=== PATIENT | male | born 1975 | race American Indian/Alaskan Native ===

== ENCOUNTER 2017-09-15 14:13 | Emergency (ER) | payer BC ==
[2017-09-15 15:19] LABS: Bilirubin,Urine NEG (Negative); Blood,Urine NEG (Negative); Color,Urine Yellow (Yellow); Mucus,Urine FEW /HPF; Nitrite,Urine NEG (Negative); Protein,Urine <15 mg/dL mg/dL (Negative)
[2017-09-15 15:29] LABS: Hematocrit 40.4 % (35.5-45.6); Hemoglobin 13.4 gm/dl (11.8-15.2); Mean Corpuscular HGB Conc 33 % (32-34); Mean Corpuscular Hemoglobin 28 pg (28-32); Mean Corpuscular Volume 83 fl (84-94); Platelet Count 253 K/mm3 (140-440); Red Blood Count 4.87 M/mm3 (3.65-5.03); Red Cell Distribution Width 12.9 % (13.2-15.2)
[2017-09-15 15:54] LABS: Alanine Aminotransferase 33 units/L (7-56); BUN/Creatinine Ratio 27; Blood Urea Nitrogen 16 mg/dL (9-20); Calcium 9.2 mg/dL (8.4-10.2); Hemolysis Index 3
[2017-09-15 16:13] LABS: Basophils % (Manual) 0 % (0.0-1.8); Total Cells Counted 100
[2017-09-15 16:14] LABS: Anisocytosis 1+
[2017-09-15] MEDS ORDERED: ZOFRAN IV ONE (21:32)
[2017-09-15] MEDS ORDERED: PEPCID IV ONE (21:32)
[2017-09-15] MEDS ORDERED: NACL 0.9% 1000 ML 1,000 ML IV ONE (21:32)
--- NOTE | 2017-09-15 21:32 | Emergency Department Report ---
Vomiting/Diarrhea - HPI Chief Complaint: Nausea/Vomiting/Diarrhea Stated Complaint: THINK HAS DIABETES Time Seen by Provider: 09/15/17 21:11 Duration: patient states that he has had nausea vomiting diarrhea for approximately one week Severity: moderate Nausea/Vomiting Severity: Moderate Diarrhea Severity: Moderate Pain Location: Other (patient denies pain) Pain Severity: None Symptoms: Yes Watery Diarrhea, Yes Able to Tolerate Fluids (very little over the last week), No Bloody diarrhea, No Fever, No Recent Unusual Foods, No Recent Untreated Water, No Recent use of Antibiotics, No Family w/ Similar Symptoms, No Contacts w/ Similar Symptoms, No Rash, No Hematuria, No Recent URI Symptoms Other History: Patient also states that he has had 2 months of weight loss. Patient states he even went to the clinic 2 weeks ago to get HIV testing as he thought this may have been the cause of his weight loss. The patient denies any fevers chills. Patient denies pain. Patient looked on the Internet and looked up symptoms for diabetes and came in for diabetes testing ED Review of Systems ROS: Stated complaint: THINK HAS DIABETES Other details as noted in HPI Comment: All other systems reviewed and negative ED Past Medical Hx - Past Medical History Previous Medical History?: Yes Additional medical history: STD exposure - Surgical History Past Surgical History?: Yes Additional Surgical History: left arm with plates and screws - Social History Smoking Status: Current Every Day Smoker Substance Use Type: Marijuana - Medications Home Medications: Home Medications Medication Instructions Recorded Confirmed Last Taken Type Diphenoxylate/Atropine [Lomotil] 1 tab PO Q4H PRN #7 tablet 09/15/17 Unknown Rx Famotidine [Pepcid] 20 mg PO TID #20 tablet 09/15/17 Unknown Rx Ondansetron [Zofran Odt] 4 mg PO TID #10 tab.rapdis 09/15/17 Unknown Rx Vomiting Diarrhea Exam - Exam General: Vital signs noted. No distress. Alert and acting appropriately. HEENT: Yes Moist Mucous Membranes, No Pharyngeal Erythema, No Pharyngeal Exudates, No Rhinorrhea, No Conjuctival Injection, No Frontal Tenderness, No Maxillary Tenderness Neck: No Adenopathy, No Rigidity Lungs: Yes Clear Lung Sounds, Yes Good Air Exchange, No Wheezes, No Stridor, No Cough, No Nasal Flaring, No Retractions, No Use of Accessory Muscles Heart exam: Regular: Yes, Murmur: No, Tachycardia: No Abdomen: Tenderness: No, Peritoneal Signs: No, Distention: No, Hyperactive Bowel sounds: No Skin exam: Rash: No, Edema: No, Normal turgor: Yes Neurologic: Alert and oriented, no deficits. Musculoskeletal: Unremarkable. ED Course Vital Signs 09/15/17 14:35 Temperature 98 F Pulse Rate 96 H Respiratory 16 Rate Blood Pressure 138/81 O2 Sat by Pulse 99 Oximetry - Reevaluation(s) Reevaluation #1: 09/15/17 23:39 Patient's been given 1 L normal saline for hydration and is feeling better after nausea medicines as well patient will be discharged home at this time for follow-up with primary care ED Medical Decision Making - Lab Data Result diagrams: 09/15/17 15:10 09/15/17 15:10 Lab Results 09/15/17 09/15/17 09/15/17 Range/Units 14:26 15:00 15:10 WBC 4.1 L (4.5-11.0) K/mm3 RBC 4.87 (3.65-5.03) M/mm3 Hgb 13.4 (11.8-15.2) gm/dl Hct 40.4 (35.5-45.6) % MCV 83 L (84-94) fl MCH 28 (28-32) pg MCHC 33 (32-34) % RDW 12.9 L (13.2-15.2) % Plt Count 253 (140-440) K/mm3 Add Manual Diff Complete Total Counted 100 Seg Neutrophils % Technology Intern Seg Neuts % (Manual) 44.0 (40.0-70.0) % Band Neutrophils % 0 % Lymphocytes % (Manual) 42.0 H (13.4-35.0) % Reactive Lymphs % (Man) 0 % Monocytes % (Manual) 13.0 H (0.0-7.3) % Eosinophils % (Manual) 1.0 (0.0-4.3) % Basophils % (Manual) 0 (0.0-1.8) % Metamyelocytes % 0 % Myelocytes % 0 % Promyelocytes % 0 % Blast Cells % 0 % Nucleated RBC % Not Reportable Seg Neutrophils # Man 1.8 (1.8-7.7) K/mm3 Band Neutrophils # 0.0 K/mm3 Lymphocytes # (Manual) 1.7 (1.2-5.4) K/mm3 Abs React Lymphs (Man) 0.0 K/mm3 Monocytes # (Manual) 0.5 (0.0-0.8) K/mm3 Eosinophils # (Manual) 0.0 (0.0-0.4) K/mm3 Basophils # (Manual) 0.0 (0.0-0.1) K/mm3 Metamyelocytes # 0.0 K/mm3 Myelocytes # 0.0 K/mm3 Promyelocytes # 0.0 K/mm3 Blast Cells # 0.0 K/mm3 WBC Morphology Not Reportable Hypersegmented Neuts Not Reportable Hyposegmented Neuts Not Reportable Hypogranular Neuts Not Reportable Smudge Cells Not Reportable Toxic Granulation Not Reportable Toxic Vacuolation Not Reportable Dohle Bodies Not Reportable Pelger-Huet Anomaly Not Reportable May Rods Not Reportable Platelet Estimate Appears normal Clumped Platelets Not Reportable Plt Clumps, EDTA Not Reportable Large Platelets Not Reportable Giant Platelets Not Reportable Platelet Satelliting Not Reportable Plt Morphology Comment Not Reportable RBC Morphology Not Reportable Dimorphic RBCs Not Reportable Polychromasia Not Reportable Hypochromasia Not Reportable Poikilocytosis Not Reportable Anisocytosis 1+ Microcytosis Not Reportable Macrocytosis Not Reportable Spherocytes Not Reportable Pappenheimer Bodies Not Reportable Sickle Cells Not Reportable Target Cells Not Reportable Tear Drop Cells Not Reportable Ovalocytes Not Reportable Helmet Cells Not Reportable Cardoso-[place] Bodies Not Reportable [place] Rings Not Reportable Noe Cells Not Reportable Bite Cells Not Reportable Crenated Cell Not Reportable Elliptocytes Not Reportable Acanthocytes (Spur) Not Reportable Rouleaux Not Reportable Hemoglobin C Crystals Not Reportable Schistocytes Not Reportable Malaria parasites Not Reportable Carl Bodies Not Reportable Hem Pathologist Commnt No Sodium (137-145) mmol/L Potassium (3.6-5.0) mmol/L Chloride (98-107) mmol/L Carbon Dioxide (22-30) mmol/L Anion Gap mmol/L BUN (9-20) mg/dL Creatinine (0.8-1.5) mg/dL Estimated GFR ml/min BUN/Creatinine Ratio % Glucose (75-100) mg/dL POC Glucose 98 (70-105) Calcium (8.4-10.2) mg/dL Total Bilirubin (0.1-1.2) mg/dL AST (5-40) units/L ALT (7-56) units/L Alkaline Phosphatase (35-129) units/L Total Protein (6.3-8.2) g/dL Albumin (3.9-5) g/dL Albumin/Globulin Ratio % Urine Color Yellow (Yellow) Urine Turbidity Clear (Clear) Urine pH 6.0 (5.0-7.0) Ur Specific [place] 1.023 (1.003-1.030) Urine Protein <15 mg/dl (Negative) mg/dL Urine Glucose (UA) Neg (Negative) mg/dL Urine Ketones Neg (Negative) mg/dL Urine Blood Neg (Negative) Urine Nitrite Neg (Negative) Urine Bilirubin Neg (Negative) Urine Urobilinogen 4.0 (<2.0) mg/dL Ur Leukocyte Esterase Tr (Negative) Urine WBC (Auto) 5.0 (0.0-6.0) /HPF Urine RBC (Auto) 5.0 (0.0-6.0) /HPF Urine Mucus Few /HPF 09/15/17 Range/Units 15:10 WBC (4.5-11.0) K/mm3 RBC (3.65-5.03) M/mm3 Hgb (11.8-15.2) gm/dl Hct (35.5-45.6) % MCV (84-94) fl MCH (28-32) pg MCHC (32-34) % RDW (13.2-15.2) % Plt Count (140-440) K/mm3 Add Manual Diff Total Counted Seg Neutrophils % Seg Neuts % (Manual) (40.0-70.0) % Band Neutrophils % % Lymphocytes % (Manual) (13.4-35.0) % Reactive Lymphs % (Man) % Monocytes % (Manual) (0.0-7.3) % Eosinophils % (Manual) (0.0-4.3) % Basophils % (Manual) (0.0-1.8) % Metamyelocytes % % Myelocytes % % Promyelocytes % % Blast Cells % % Nucleated RBC % Seg Neutrophils # Man (1.8-7.7) K/mm3 Band Neutrophils # K/mm3 Lymphocytes # (Manual) (1.2-5.4) K/mm3 Abs React Lymphs (Man) K/mm3 Monocytes # (Manual) (0.0-0.8) K/mm3 Eosinophils # (Manual) (0.0-0.4) K/mm3 Basophils # (Manual) (0.0-0.1) K/mm3 Metamyelocytes # K/mm3 Myelocytes # K/mm3 Promyelocytes # K/mm3 Blast Cells # K/mm3 WBC Morphology Hypersegmented Neuts Hyposegmented Neuts Hypogranular Neuts Smudge Cells Toxic Granulation Toxic Vacuolation Dohle Bodies Pelger-Huet Anomaly May Rods Platelet Estimate Clumped Platelets Plt Clumps, EDTA Large Platelets Giant Platelets Platelet Satelliting Plt Morphology Comment RBC Morphology Dimorphic RBCs Polychromasia Hypochromasia Poikilocytosis Anisocytosis Microcytosis Macrocytosis Spherocytes Pappenheimer Bodies Sickle Cells Target Cells Tear Drop Cells Ovalocytes Helmet Cells Cardoso-[place] Bodies [place] Rings [place] Cells Bite Cells Crenated Cell Elliptocytes Acanthocytes (Spur) Rouleaux Hemoglobin C Crystals Schistocytes Malaria parasites Carl Bodies Hem Pathologist Commnt Sodium 141 (137-145) mmol/L Potassium 4.0 (3.6-5.0) mmol/L Chloride 102.1 (98-107) mmol/L Carbon Dioxide 27 (22-30) mmol/L Anion Gap 16 mmol/L BUN 16 (9-20) mg/dL Creatinine 0.6 L (0.8-1.5) mg/dL Estimated GFR > 60 ml/min BUN/Creatinine Ratio 27 % Glucose 113 H (75-100) mg/dL POC Glucose (70-105) Calcium 9.2 (8.4-10.2) mg/dL Total Bilirubin 0.40 (0.1-1.2) mg/dL AST 27 (5-40) units/L ALT 33 (7-56) units/L Alkaline Phosphatase 164 H (35-129) units/L Total Protein 7.1 (6.3-8.2) g/dL Albumin 4.0 (3.9-5) g/dL Albumin/Globulin Ratio 1.3 % Urine Color (Yellow) Urine Turbidity (Clear) Urine pH (5.0-7.0) Ur Specific [place] (1.003-1.030) Urine Protein (Negative) mg/dL Urine Glucose (UA) (Negative) mg/dL Urine Ketones (Negative) mg/dL Urine Blood (Negative) Urine Nitrite (Negative) Urine Bilirubin (Negative) Urine Urobilinogen (<2.0) mg/dL Ur Leukocyte Esterase (Negative) Urine WBC (Auto) (0.0-6.0) /HPF Urine RBC (Auto) (0.0-6.0) /HPF Urine Mucus /HPF Critical care attestation.: If time is entered above; I have spent that time in minutes in the direct care of this critically ill patient, excluding procedure time. ED Disposition Clinical Impression: Gastroenteritis Disposition: DC-01 TO HOME OR SELFCARE Is pt being admited?: No Does the pt Need Aspirin: No Condition: Fair Instructions: Gastroenteritis (ED) Prescriptions: Diphenoxylate/Atropine [Lomotil] 1 tab PO Q4H PRN #7 tablet PRN Reason: Diarrhea Famotidine [Pepcid] 20 mg PO TID #20 tablet Ondansetron [Zofran Odt] 4 mg PO TID #10 tab.solitario Referrals: ASHLEY WINN MD [Primary Care Provider] - 3-5 Days
[2017-09-15 23:15] VITALS: BP 124/77
== END 2017-09-16 00:25 | disposition home or self-care (01) ==
LOC: ED 14:13
DX: K52.89 Other specified noninfective gastroenteritis and colitis (principal); F17.200 Nicotine dependence, unspecified, uncomplicated; F12.10 Cannabis abuse, uncomplicated
CPT/HCPCS: 36415; 80053; 81001; 82962; 85007; 85025; 96361; 96374; 96375; 99283; J2405; J7030

== ENCOUNTER 2017-10-20 11:29 | Emergency (ER) | payer BC ==
[2017-10-20] MEDS ORDERED: PROVENTIL IH ONE (14:53)
[2017-10-20] MEDS ORDERED: DELTASONE PO ONE (14:54)
--- NOTE | 2017-10-20 14:55 | Emergency Department Report ---
Blank Doc - Documentation Documentation: Patient is a 42-year-old male presents as were all possible days patient states he has thick productive mucus is concerned about respiratory infection. Get x- ray albuterol and prednisone will have patient seen by SAMANTHA.
--- NOTE | 2017-10-20 15:22 | Emergency Department Report ---
Minor Respiratory - HPI Chief Complaint: Upper Respiratory Infection Stated Complaint: COUGHING Duration: 5 Days Pain Location: Throat, Nose, Chest Severity: moderate Minor Respiratory: Yes Sore Throat, Yes Able to Tolerate Fluids, Yes Cough, No Rhinorrhea, No Ear Pain, No Sick Contacts, No Hemoptysis, No Chest Pain, No Shortness of Breath, No Fever ED Review of Systems ROS: Stated complaint: COUGHING Other details as noted in HPI Comment: All other systems reviewed and negative ENT: throat pain Respiratory: cough ED Past Medical Hx - Past Medical History Previous Medical History?: Yes Additional medical history: STD exposure - Surgical History Past Surgical History?: Yes Additional Surgical History: left arm with plates and screws - Social History Smoking Status: Current Every Day Smoker Substance Use Type: Marijuana - Medications Home Medications: Home Medications Medication Instructions Recorded Confirmed Last Taken Type Azithromycin [Zithromax Z-JEFF] 250 mg PO DAILY #6 tablet 10/20/17 Unknown Rx Benzonatate [Tessalon Perles] 100 mg PO Q8HR PRN #20 capsule 10/20/17 Unknown Rx Fluticasone [Flonase] 1 spray NS QDAY #1 bottle 10/20/17 Unknown Rx predniSONE [Deltasone] 50 mg PO QDAY #5 tab 10/20/17 Unknown Rx Minor Respiratory Exam - Exam General: Vital signs noted. No distress. Alert and acting appropriately. HEENT: Yes Pharyngeal Erythema, Yes Moist Mucous Membranes, Yes Frontal Tenderness, Yes Maxillary Tenderness, No Pharyngeal Exudates, No Rhinorrhea, No Conjuctival Injection Ear: Neither TM Bulge, Neither TM Erythema, Neither EAC Pain, Neither EAC Discharge Neck: Yes Supple, No Adenopathy Lungs: Yes Good Air Exchange, Yes Wheezes, Yes Cough, No Ronchi, No Stridor, No Labored Respirations, No Retractions, No Use of Accessory Muscles, No Other Abnormal Lung Sounds Heart: Yes Regular (90), No Murmur Abdomen: Yes Normal Bowel Sounds, No Tenderness, No Peritoneal Signs Skin: No Rash, No Edema Neurologic: Alert and oriented, no deficits. Musculoskeletal: Unremarkable. ED Course Vital Signs 10/20/17 11:36 Temperature 98.7 F Pulse Rate 104 H Respiratory 20 Rate Blood Pressure 144/89 O2 Sat by Pulse 97 Oximetry - Reevaluation(s) Reevaluation #1: 10/20/17 15:24 She comes to the emergency room today with a 5 day history of a cough with yellow sputum. He denies fever or chills. He states that symptoms occurred after being outside playing with his family. He has nasal congestion and sinus tenderness. Throat erythema. Complains of a scratchy throat. Vital signs are stable is nontoxic and non-ill appearing. ED Medical Decision Making - Radiology Data Radiology results: report reviewed, image reviewed - Medical Decision Making 5 D HX OF S/S NO FEVER - Differential Diagnosis URTI Critical care attestation.: If time is entered above; I have spent that time in minutes in the direct care of this critically ill patient, excluding procedure time. ED Disposition Clinical Impression: URTI (acute upper respiratory infection), Sinusitis, Bronchitis Disposition: TO HOME OR SELFCARE Is pt being admited?: No Does the pt Need Aspirin: No Condition: Stable Instructions: Acute Bronchitis (ED), Chronic Bronchitis (ED) Additional Instructions: REST FLUIDS MEDS ORDERED TODAY FOLLOW UP PCP NEXT WEEK MOTRIN OR TYLENOL FOR PAIN OR FEVER OVER THE COUNTER SYMPTOM RELIEF. Prescriptions: Azithromycin [Zithromax Z-JEFF] 250 mg PO DAILY #6 tablet Benzonatate [Tessalon Perles] 100 mg PO Q8HR PRN #20 capsule PRN Reason: Cough Fluticasone [Flonase] 1 spray NS QDAY #1 bottle predniSONE [Deltasone] 50 mg PO QDAY #5 tab Referrals: PRIMARY CARE,MD [Primary Care Provider] - 3-5 Days [facility] [Outside] - 3-5 Days Time of Disposition: 15:20
--- NOTE | 2017-10-20 15:35 | XRay Report ---
FINAL REPORT EXAM: XR CHEST ROUTINE 2V HISTORY: cough TECHNIQUE: 2 view examination of the chest PRIORS: None FINDINGS: There is no visible pulmonary consolidation, pleural effusion, or pneumothorax. Cardiac silhouette size is normal without vascular congestion. No visible acute displaced fracture in the regional skeleton. IMPRESSION: No evidence of acute cardiopulmonary disease
[2017-10-20 15:36] VITALS: BP 122/81
== END 2017-10-20 15:40 | disposition home or self-care (01) ==
LOC: ED 11:29
DX: J40 Bronchitis, not specified as acute or chronic (principal); J32.9 Chronic sinusitis, unspecified; J06.9 Acute upper respiratory infection, unspecified; F17.200 Nicotine dependence, unspecified, uncomplicated; F12.10 Cannabis abuse, uncomplicated
CPT/HCPCS: 71046; 99283; J7512

== ENCOUNTER 2018-02-13 04:23 | Emergency (ER) | payer BC ==
[2018-02-13] MEDS ORDERED: ASPIRIN PO ONE (04:42)
[2018-02-13 05:17] LABS: Basophils % (Auto) 0.3 % (0.0-1.8); Eosinophils # (Auto) 0.1 K/mm3 (0.0-0.4); Eosinophils % (Auto) 2.1 % (0.0-4.3); Hemoglobin 12.4 gm/dl (11.8-15.2); Lymphocytes # (Auto) 2.3 K/mm3 (1.2-5.4); Lymphocytes % (Auto) 44.8 % (13.4-35.0); Mean Corpuscular HGB Conc 33 % (32-34); Mean Corpuscular Hemoglobin 28 pg (28-32); Mean Corpuscular Volume 86 fl (84-94); Monocytes # (Auto) 0.7 K/mm3 (0.0-0.8); Monocytes % (Auto) 14.2 % (0.0-7.3); Platelet Count 260 K/mm3 (140-440); Red Blood Count 4.44 M/mm3 (3.65-5.03); Red Cell Distribution Width 12.7 % (13.2-15.2)
[2018-02-13 05:30] LABS: BUN/Creatinine Ratio 21; Blood Urea Nitrogen 15 mg/dL (9-20); Hemolysis Index 7
[2018-02-13 08:58] VITALS: BP 134/83
== END 2018-02-13 07:50 | disposition left against medical advice (07) ==
LOC: ED 04:23
DX: R07.89 Other chest pain (principal); Z53.21 Procedure and treatment not carried out due to patient leaving prior to being seen by health care provider
CPT/HCPCS: 36415; 80048; 84484; 85025; 93005; 93010

== ENCOUNTER 2019-02-05 14:40 | Emergency (ER) | payer BC ==
--- NOTE | 2019-02-05 14:45 | Emergency Department Report ---
Blank Doc - Documentation Documentation: This is a 43-year-old male that presents with left facial boil x1 day. This initial assessment/diagnostic orders/clinical plan/treatment(s) is/are subject to change based on patient's health status, clinical progression and re- assessment by fellow clinical providers in the ED. Further treatment and workup at subsequent clinical providers discretion. Patient/guardians urged not to elope from the ED as their condition may be serious if not clinically assessed and managed. Initial orders include: 1- Patient sent to [facility] for further evaluation and treatment
[2019-02-05] MEDS ORDERED: ORAPRED PO ONE (15:08)
[2019-02-05] MEDS ORDERED: PEPCID PO ONE (15:08)
--- NOTE | 2019-02-05 15:11 | Emergency Department Report ---
ED Rash HPI - HPI Chief Complaint: Skin Rash Stated Complaint: STUNG ON SIDE OF NECK Time Seen by Provider: 02/05/19 14:44 Duration: 1 Day Location: Other Suspected Cause: Insect, Unknown Rash Symptoms: No Itching, No Facial Swelling, No Tongue/Oral Swelling, No Breathing Difficulties, No Choking Sensation, No Wheezing/Dyspnea, No Peeling, No Blistering, No Fever, No Lightheaded, No Malaise, No Myalgias Severity: mild Other History: Patient is a 43-year-old male who comes to the ER with what he thinks started as an insect biteon his left anterior neck area. The area on exam appears more to be consistent with folliculitis. Patient states that he recently went to the [place]. Patient has scratched it itched at the area until it is draining clear drainage. There is no surrounding cellulitis. ABCs are intact. No fever. BP noted to be increased on exam. Not on home BP meds. No headache, no chest pain, no shortness of breath. Ambulatory ED Review of Systems ROS: Stated complaint: STUNG ON SIDE OF NECK Other details as noted in HPI Comment: All other systems reviewed and negative ED Past Medical Hx - Past Medical History Previous Medical History?: No Additional medical history: STD exposure - Surgical History Past Surgical History?: Yes Additional Surgical History: left arm with plates and screws, 1990 - Social History Smoking Status: Never Smoker Substance Use Type: Marijuana - Medications Home Medications: Home Medications Medication Instructions Recorded Confirmed Last Taken Type Amoxicillin [Trimox CAP] 500 mg PO BID #20 capsule 02/05/19 Unknown Rx Rash Exam - Exam General: Vital signs noted. No distress. Alert and acting appropriately. RED INSECT BITES ON ARMS/ LEGS/RIGHT EAR APPEARS TO BE [place] BITES ABC INTACT VSS CHILD IN NO DISTRESS PLAYING ON EXAM HEENT: No Periorbital Edema, No Conjuctival Injection Lungs: Yes Good Air Exchange, Yes Ronchi Heart: Yes Regular, No Murmur Front/Back of Body, Lg (Color): 1 - area involved Skin: Yes Erythema, No Urticarial Rash Other: Positive: Abdomen Normal, Neurologic Normal, Musculoskeletal Normal ED Course Vital Signs 02/05/19 14:44 Temperature 98.8 F Pulse Rate 101 H Respiratory 18 Rate Blood Pressure 166/112 O2 Sat by Pulse 99 Oximetry ED Medical Decision Making - Medical Decision Making VSS No fever ABC intact no distress Vital Signs 02/05/19 02/05/19 14:44 16:02 Temperature 98.8 F Pulse Rate 101 H 86 Respiratory 18 20 Rate Blood Pressure 166/112 Blood Pressure 146/96 [Left] O2 Sat by Pulse 99 Oximetry DC HOME WITH DISCHARGE PLAN OF CARE. Pt has been educated on care of the area. Discussed with pt his blood pressure. He has been instructed to monitor it and was given referral to a PCP for frollow up Vital Signs (72 hours) 02/05/19 14:44 Temperature 98.8 F Pulse Rate 101 H Respiratory 18 Rate Blood Pressure 166/112 O2 Sat by Pulse 99 Oximetry - Differential Diagnosis INSECT BITE V FOLLICULITS Critical care attestation.: If time is entered above; I have spent that time in minutes in the direct care of this critically ill patient, excluding procedure time. ED Disposition Clinical Impression: Folliculitis, Elevated blood pressure reading Disposition: DC-01 TO HOME OR SELFCARE Is pt being admited?: No Does the pt Need Aspirin: No Condition: Stable Instructions: Folliculitis (ED) Additional Instructions: DIET TOLERATED MEDS ORDERED TODAY IN ER FOLLOW INSTRUCTIONS ON THE BOTTLE FOLLOW UP PCP WITHIN 48 HOURS TO ENSURE YOU ARE GETTING BETTER ACTIVITY TOLERATED MOTRIN OR TYLENOL FOR PAIN OR FEVER RETURN TO THE ER FOR WORSENING SYMPTOMS NOT RELIEVED BY YOUR MEDICATIONS. YOUR BP WAS ELEVATED TODAY MONITOR THIS AND BE SURE IT COMES DOWN REFERRAL FOR PCP IS BELOW Prescriptions: Amoxicillin [Trimox CAP] 500 mg PO BID #20 capsule Referrals: [facility] [Outside] - 3-5 Days Forms: Work/School Release Form(ED) Time of Disposition: 15:08
[2019-02-05] MEDS ORDERED: TRIMOX PO ONE (15:21)
[2019-02-05 16:13] VITALS: BP 146/96
== END 2019-02-05 16:09 | disposition home or self-care (01) ==
LOC: ED 14:40
DX: L73.9 Follicular disorder, unspecified (principal); R03.0 Elevated blood-pressure reading, without diagnosis of hypertension; F12.10 Cannabis abuse, uncomplicated
CPT/HCPCS: 99282

== ENCOUNTER 2019-08-23 10:27 | Emergency (ER) | payer BC ==
[2019-08-23 10:42] VITALS: BP 149/91
[2019-08-23] MEDS ORDERED: SULFAMETHOXAZOLE/TRIMETHOPRIM 800/160MG DS TAB PO ONE (11:11)
[2019-08-23] MEDS ORDERED: cephALEXin 500 MG CAP PO ONE (11:11)
[2019-08-23] MEDS ORDERED: IBUPROFEN 800 MG TAB PO ONE (11:11)
--- NOTE | 2019-08-23 11:16 | Emergency Department Report ---
- General Chief complaint: Medical Clearance Stated complaint: BEE STING ON BACK/PAIN Time Seen by Provider: 08/23/19 11:11 Source: patient Mode of arrival: Ambulatory Limitations: No Limitations - History of Present Illness Initial comments: Mr. Gilbert is a 44-year-old male without significant past medical history who presents with a boil on his upper back just below his neck. 5 days ago he was stung by wasp. He then developed a boil. He manipulated and "busted open" the abscess. No previous history of abscess. No fever. He has consistent pus drainage which stains on his clothing. Last tetanus booster received one year ago. Tetanus status is up-to-date. MD complaint: abscess/boil -: Gradual, days(s) (5) Tetanus Up to Date: yes Location: back Severity: mild Quality: aching Consistency: constant Improves with: none Worsens with: none Context: witnessed insect bite Associated symptoms: denies other symptoms Treatments Prior to Arrival: attempted to drain pus at - Related Data Previous Rx's Medication Instructions Recorded Last Taken Type Amoxicillin [Trimox CAP] 500 mg PO BID #20 capsule 02/05/19 Unknown Rx Sulfamethoxazole/Trimethoprim 1 each PO BID 10 Days #20 tablet 08/23/19 Unknown Rx [Bactrim DS TAB] Allergies Allergy/AdvReac Type Severity Reaction Status Date / Time No Known Allergies Allergy Verified 05/08/16 06:24 Abscess Boil HPI - HPI Chief Complaint: Medical Clearance Stated Complaint: BEE STING ON BACK/PAIN Time Seen by Provider: 08/23/19 11:11 Home Medications: Previous Rx's Medication Instructions Recorded Last Taken Type Amoxicillin [Trimox CAP] 500 mg PO BID #20 capsule 02/05/19 Unknown Rx Sulfamethoxazole/Trimethoprim 1 each PO BID 10 Days #20 tablet 08/23/19 Unknown Rx [Bactrim DS TAB] Allergies/Adverse Reactions: Allergies Allergy/AdvReac Type Severity Reaction Status Date / Time No Known Allergies Allergy Verified 05/08/16 06:24 ED Review of Systems ROS: Stated complaint: BEE STING ON BACK/PAIN Other details as noted in HPI Constitutional: denies: fever, malaise Gastrointestinal: denies: nausea, vomiting Skin: rash, lesions Neurological: denies: headache, numbness, paresthesias ED Past Medical Hx - Past Medical History Additional medical history: STD exposure - Surgical History Additional Surgical History: left arm with plates and screws, 1990 - Social History Smoking Status: Never Smoker Substance Use Type: Alcohol - Medications Home Medications: Home Medications Medication Instructions Recorded Confirmed Last Taken Type Amoxicillin [Trimox CAP] 500 mg PO BID #20 capsule 02/05/19 Unknown Rx Sulfamethoxazole/Trimethoprim 1 each PO BID 10 Days #20 tablet 08/23/19 Unknown Rx [Bactrim DS TAB] ED Physical Exam - General Limitations: No Limitations General appearance: alert, in no apparent distress - Head Head exam: Present: atraumatic, normocephalic - Eye Eye exam: Present: normal appearance. Absent: scleral icterus, conjunctival injection - ENT ENT exam: Present: mucous membranes moist - Neck Neck exam: Present: normal inspection, full ROM - Respiratory Respiratory exam: Absent: respiratory distress - Extremities Exam Extremities exam: Present: normal inspection - Back Exam Back exam: Present: other (superior portion of central back just inferior to the neck there is a 4 cm abscess with a 2 cm opening ulcer with copious amount of purulent drainage) - Psychiatric Psychiatric exam: Present: normal affect, normal mood - Skin Skin exam: Present: warm, dry, intact, normal color ED Course Vital Signs 08/23/19 10:40 Temperature 99.1 F Pulse Rate 73 Respiratory 16 Rate Blood Pressure 149/91 [Left] O2 Sat by Pulse 95 Oximetry ED Medical Decision Making - Medical Decision Making Mr. Gilbert presents with simple abscess of the upper back which is actively drainng. Incision and drainage not indicated. Tetanus is up-to-date. Prescribed Bactrim. Recommended [id number] ibuprofen. Given wound care instructions. Critical care attestation.: If time is entered above; I have spent that time in minutes in the direct care o f this critically ill patient, excluding procedure time. ED Disposition Clinical Impression: Abscess Disposition: DC-01 TO HOME OR SELFCARE Is pt being admited?: No Does the pt Need Aspirin: No Condition: Stable Instructions: Abscess (ED) Prescriptions: Sulfamethoxazole/Trimethoprim [Bactrim DS TAB] 1 each PO BID 10 Days #20 tablet Referrals: HILARY ALAN MD [Staff Physician] - 3-5 Days
== END 2019-08-23 11:34 | disposition home or self-care (01) ==
LOC: ED 10:27
DX: L02.212 Cutaneous abscess of back [any part, except buttock and flank] (principal); Z20.2 Contact with and (suspected) exposure to infections with a predominantly sexual mode of transmission; Z98.890 Other specified postprocedural states; Z79.2 Long term (current) use of antibiotics; Z79.899 Other long term (current) drug therapy
CPT/HCPCS: 99282

== ENCOUNTER 2021-11-30 07:07 | Emergency (ER) | payer BC | END 2021-11-30 07:10 | disposition left against medical advice (07) | LOC: ED 07:07 | DX: Z00.00 Encounter for general adult medical examination without abnormal findings (principal); Z53.21 Procedure and treatment not carried out due to patient leaving prior to being seen by health care provider ==

== ENCOUNTER 2021-12-01 07:06 | Emergency (ER) | payer BC ==
[2021-12-01] MEDS ORDERED: ONDANSETRON 4 MG/2 ML INJ IV ONE (13:13)
[2021-12-01] MEDS ORDERED: DIPHENOXYLATE/ATROPINE TAB PO ONE (13:13)
[2021-12-01] MEDS ORDERED: SODIUM CHLORIDE 0.9% 1000 ML 1,000 ML IV ONE (13:13)
--- NOTE | 2021-12-01 13:14 | Emergency Department Report ---
ED N/V/D HPI - General Chief complaint: Nausea/Vomiting/Diarrhea Stated complaint: N/V/D X 5 DAYS Time Seen by Provider: 12/01/21 13:11 Source: patient Mode of arrival: Ambulatory Limitations: No Limitations - History of Present Illness Initial comments: 46-year-old male who reports a past history of elevated blood pressure but was never placed on medication presents to the ER today with complaints of vomiting and diarrhea. Patient states that his symptoms started about 5 days ago. He reports associated generalized fatigue and he has noticed that he is lost weight. He states that 8 days ago he was 225 now is down to 205. He denies any associate abdominal pain, fever, chills, UTI symptoms. He states that he has been trying to drink fluids but every time he tries he vomits. He denies any hematemesis or hematochezia or melena or mucus in his stool. He denies any known ill contacts, recent travel, bad food intakes or recent antibiotic use. He denies similar symptoms in the past. He states that he drinks alcohol occasionally. He denies any illicit drug use. MD complaint: nausea, vomiting, diarrhea -: days(s) (5) - Related Data Previous Rx's Medication Instructions Recorded Last Taken Type Diphenoxylate/Atropine [Lomotil] 1 tab PO Q4H PRN #15 12/01/21 Unknown Rx Ondansetron [Zofran Odt] 4 mg PO Q8HR PRN #15 tab.rapdis 12/01/21 Unknown Rx Allergies Allergy/AdvReac Type Severity Reaction Status Date / Time No Known Allergies Allergy Verified 05/08/16 06:24 ED Review of Systems ROS: Stated complaint: N/V/D X 5 DAYS Other details as noted in HPI Comment: All other systems reviewed and negative Constitutional: denies: chills, fever Eyes: denies: eye pain, eye discharge, vision change Respiratory: denies: cough, shortness of breath, SOB with exertion, SOB at rest, wheezing Cardiovascular: denies: chest pain, palpitations Gastrointestinal: nausea, vomiting, diarrhea. denies: abdominal pain Genitourinary: denies: urgency, dysuria, frequency, hematuria, discharge, test icular pain, testicular mass Musculoskeletal: denies: back pain, joint swelling, arthralgia Skin: denies: rash, lesions, change in color, change in hair/nails, pruritus Neurological: denies: headache, weakness, numbness, paresthesias, confusion, abnormal gait, vertigo Psychiatric: denies: anxiety, depression, auditory hallucinations, visual hallucinations, homicidal thoughts, suicidal thoughts Hematological/Lymphatic: denies: easy bleeding, easy bruising, swollen glands ED Past Medical Hx - Past Medical History Additional medical history: STD exposure - Surgical History Additional Surgical History: left arm with plates and screws, 1990 - Social History Smoking Status: Never Smoker Substance Use Type: Alcohol - Medications Home Medications: Home Medications Medication Instructions Recorded Confirmed Last Taken Type Diphenoxylate/Atropine [Lomotil] 1 tab PO Q4H PRN #15 12/01/21 Unknown Rx Ondansetron [Zofran Odt] 4 mg PO Q8HR PRN #15 tab.rapdis 12/01/21 Unknown Rx ED Physical Exam - General Limitations: No Limitations General appearance: alert, in no apparent distress - Head Head exam: Present: atraumatic, normocephalic, normal inspection - Eye Eye exam: Present: normal appearance, PERRL, EOMI Pupils: Present: normal accommodation - ENT ENT exam: Present: mucous membranes moist - Neck Neck exam: Present: normal inspection, full ROM. Absent: meningismus - Respiratory Respiratory exam: Present: normal lung sounds bilaterally. Absent: respiratory distress, wheezes, rales, rhonchi - Cardiovascular Cardiovascular Exam: Present: normal rhythm, tachycardia, normal heart sounds - GI/Abdominal GI/Abdominal exam: Present: soft. Absent: distended, tenderness, guarding, rebound - Neurological Exam Neurological exam: Present: alert, oriented X3, CN II-XII intact, normal gait - Psychiatric Psychiatric exam: Present: normal affect, normal mood - Skin Skin exam: Present: intact ED Course Vital Signs 12/01/21 12/01/21 08:13 14:41 Temperature 98.4 F Pulse Rate 111 H 90 Respiratory 18 16 Rate Blood Pressure 170/87 136/76 [Right] O2 Sat by Pulse 99 100 Oximetry ED Medical Decision Making - Lab Data Result diagrams: 12/01/21 13:26 12/01/21 13:23 - Medical Decision Making Labs reviewed with no significant abnormalities. Patient alkaline phos was elevated today but based on prior labs he has had elevated alk phos in the past. He does not have any abdominal pain and his abdomen is soft and nontender. Patient was given IV fluids as well as antiemetics and Lomotil for diarrhea. He was observed resting comfortably in the recliner. He has not had any vomiting or diarrhea during stay. Patient is not toxic nor is ill-appearing and currently not in any acute distress. Repeat vital signs show improvement of his heart rate and he remained vital signs are stable. Discussed results with patient. He will be given medication to be symptoms. He will also be given referral information to primary care doctor and GI specialist if symptoms persist. Patient expressed understanding agree with plan. Patient was stable at time of discharge. Critical care attestation.: If time is entered above; I have spent that time in minutes in the direct care of this critically ill patient, excluding procedure time. ED Disposition Clinical Impression: Vomiting and diarrhea Disposition: 01 HOME / SELF CARE / HOMELESS Is pt being admited?: No Does the pt Need Aspirin: No Condition: Stable Instructions: Food Choices to Help Relieve Diarrhea, Adult, Nausea and Vo miting, Adult, [id number], Diarrhea, Adult, [id number] Additional Instructions: I recommend that you take the Zofran and the Lomotil to help with your symptoms. Continue to try to stay hydrated by drinking lots of fluids including Gatorade, Pedialyte and water. Recommend doing a bland diet. If your symptoms persist and you continue to lose weight you will need to follow-up with GI and a primary care doctor for additional testing. If anything worsens return to the ER. Prescriptions: Diphenoxylate/Atropine [Lomotil] 1 tab PO Q4H PRN #15 PRN Reason: Diarrhea Ondansetron [Zofran Odt] 4 mg PO Q8HR PRN #15 tab.rapdis PRN Reason: Vomitinhg Referrals: MINA CHAUDHRY MD [Staff Physician] - 3-5 Days [facility] [Provider Group] - 3-5 Days Forms: Work/School Release Form(ED) Time of Disposition: 14:36
[2021-12-01 14:04] LABS: Bilirubin,Urine NEG (Negative); Blood,Urine NEG (Negative); Color,Urine Yellow (Yellow); Protein,Urine <15 mg/dL mg/dL (Negative); WBC,Urine < 1.0 /HPF (0.0-6.0)
[2021-12-01 14:14] LABS: Eosinophils # (Auto) 0.1 K/mm3 (0.0-0.4); Hematocrit 40.6 % (35.5-45.6); Hemoglobin 12.9 gm/dl (11.8-15.2); Lymphocytes # (Auto) 2.1 K/mm3 (1.2-5.4); Lymphocytes % (Auto) 43.2 % (13.4-35.0); Mean Corpuscular HGB Conc 32 % (32-34); Mean Corpuscular Volume 83 fl (84-94); Monocytes # (Auto) 0.7 K/mm3 (0.0-0.8); Monocytes % (Auto) 14.7 % (0.0-7.3); Platelet Count 290 K/mm3 (140-440); Red Blood Count 4.86 M/mm3 (3.65-5.03); Red Cell Distribution Width 13.2 % (13.2-15.2)
[2021-12-01 14:15] LABS: Basophils % (Auto) 0.3 % (0.0-1.8)
[2021-12-01 14:24] LABS: Alanine Aminotransferase 30 units/L (7-56); Albumin 4.2 g/dL (3.9-5); Blood Urea Nitrogen 16 mg/dL (9-20); Calcium 10.1 mg/dL (8.4-10.2); Hemolysis Index 17
[2021-12-01 14:28] LABS: BUN/Creatinine Ratio 32
[2021-12-01 14:45] VITALS: BP 136/76
== END 2021-12-01 14:45 | disposition home or self-care (01) ==
LOC: ED 07:06
DX: R11.10 Vomiting, unspecified (principal); R19.7 Diarrhea, unspecified; Z72.89 Other problems related to lifestyle; Z79.899 Other long term (current) drug therapy
CPT/HCPCS: 36415; 80053; 81001; 83690; 83735; 85025; 96361; 96374; 99283; J2405; J7030; Q0162